=== PATIENT | male | born 1965 | race Caucasian/White ===

== ENCOUNTER 2017-10-08 14:52 | Emergency (ER) | payer OTHER ==
[~2017-10-08] VITALS: Ht 175.3 cm; Wt 97.2 kg
[~2017-10-08 14:52] MED LIST: NAPROXEN500 MG PO; OMEPRAZOLE40 M1 PO; VALIUM2 MG PO
[2017-10-08] MEDS ORDERED: MOTRIN800 MG PO (19:35)
[2017-10-08] MEDS ORDERED: DAILY VALUE1 EACH PO (19:35)
[2017-10-08 20:34] LABS: HEMATOCRIT 45.4 % (38.0-50.0); HEMOGLOBIN 16.2 G/DL (12.5-16.6); MCHC 35.7 G/DL (30.0-36.0); PLATELET COUNT 228 K/uL (156-360); RBC DIS.WIDTH-CV 11.5 % (11.8-14.6); RBC DIS.WIDTH-SD 36.6 % (39-53); RED BLOOD COUNT 5.22 M/uL (4.00-5.50); WHITE BLOOD COUNT 7.1 K/uL (4.1-10.2)
[2017-10-08 20:43] LABS: CHLORIDE 106 mEq/L (99-109); POTASSIUM 4.3 mEq/L (3.7-5.4); SODIUM 142 mEq/L (136-147)
[2017-10-08 20:44] LABS: GLUCOSE 93 mg/dL (70-99)
[2017-10-08 20:48] LABS: GFR ESTIMATE (CALCULATED) > 59 mL/min/ (58.99-99999)
[2017-10-08 20:49] LABS: UREA NITROGEN (BUN) 17 mg/dL (9-23)
[2017-10-08 22:46] VITALS: BP 137/84
[2017-10-08 23:30] LABS: THYROTROPIN (TSH) 2.1 MIU/L (0.4-5.5)
== END 2017-10-08 22:46 | disposition home or self-care (01) ==
LOC: EME 14:52 → RME 14:52
PROVIDERS: Physician Assistant Medical
DX: R09.89 Other specified symptoms and signs involving the circulatory and respiratory systems (principal); R06.00 Dyspnea, unspecified
CPT/HCPCS: 70360; 70491; 80048; 84443; 85027; 87502; 87651 90; 99281; 99284; J7030